=== PATIENT | female | born 1945 ===

== ENCOUNTER 2016-10-16 21:47 | Emergency (ER) | payer MEDICARE ==
--- NOTE | 2016-10-16 22:36 | ED CLINICAL REPORT ---
Clinical Report - Physicians/Mid Levels [facility] [address] [place] [address] 10/16/2016 21:53 Patient: JOCE RAYMUNDO Time Seen: 22:15. Arrived- By private vehicle. Historian- patient. HISTORY OF PRESENT ILLNESS Chief Complaint: DYSURIA. This started today and still present. It was gradual in onset and has been constant but is not gone now. Modifying factors- worsened by urination. Relieved by rest. No vaginal discharge, vaginal itching or genital lesions. She has had moderate burning pain with urination. It is described as "painful" and has occurred during urination. Similar symptoms previously: (a few times). ( trying OTC UTI pain medications). Recent medical care: Not recently seen/assessed. REVIEW OF SYSTEMS No fever, chills or skin rash. All systems otherwise negative, except as recorded above. PAST HISTORY See nurses notes. SOCIAL HISTORY Never smoker. No alcohol use or drug use. Is a local resident. ADDITIONAL NOTES The nursing notes have been reviewed. PHYSICAL EXAM Vital Signs: 10/16/2016 22:00 BP: 124/83. HR: 82. RR: 20. O2 saturation: 100%. Temp: 101.7 F. Pain level now: 4/10. Blood pressure normal. Oxygen saturation normal. Appearance: Alert. Oriented X3. No acute distress. HEENT: Normal external inspection. ENT: Pharynx normal. Neck: Neck supple. CVS: Heart sounds normal. Respiratory: No respiratory distress. Breath sounds normal. Chest nontender. Abdomen: Soft and nontender. Bowel sounds normal. No mass. Skin: Skin warm and dry. Normal skin color. No rash. Normal skin turgor. Extremities: Extremities nontender. No lower extremity edema. LABS, X-RAYS, AND EKG Laboratory Tests: UA-Culture if indicated: (JASSI: 10/16/2016 22:05) ( MsgRcvd 10/16/2016 22:37) Final results Test Result Flag Units (Reference) URINE COLOR ORANGE URINE APPEARANCE CLOUDY URINE GLUCOSE NEGATIVE (NEGATIVE) URINE BILIRUBIN NEGATIVE (NEGATIVE) URINE BILIRUBIN ICTOTEST NEGATIVE (NEGATIVE) URINE KETONE NEGATIVE (NEGATIVE) URINE SPECIFIC GRAVITY 1.015 (1.010-1.030) URINE PH 7.5 (5.0-8.0) URINE PROTEIN 3+ (NEGATIVE) URINE UROBILINOGEN 0.2 EU/dL (0.2-1.0) URINE NITRITE POSITIVE (NEGATIVE) URINE BLOOD 3+ (NEGATIVE) URINE LEUK ESTERASE NEGATIVE (NEGATIVE) URINE RBC 3-5 rbc/hpf (0-1) URINE WBC 25-50 wbc/hpf (0-1) URINE EPITHELIAL CELLS 5-10 EPI/hpf (0-5) URINE BACTERIA MODERATE (2+ TO 3+) (NONE SEEN) URINE COMMENT CULTURE INDICATED CLUE CELLS PRESENTURINE CULTURES ARE SET-UP BASED ON THE FOLLOWING CRITERIA:POSITIVE NITRITEPOSITIVE LEUKOCYTE ESTERASEGREATER THAN 10 WHITE BLOOD CELLSMODERATE (2+) OR GREATER BACTERIA . PROGRESS AND PROCEDURES Course of Care: The patient is a 71-year-old female with no pertinent past medical history presenting for evaluation of urinary tract infection Symptoms. Patient appears nontoxic and is no acute distress. Vital signs are unremarkable for elevation in body temperature. Patient is febrile. Patient does not have any other symptoms at this time except for generalized body aches. Patient will be evaluated with urinalysis. Patient likely with urinary tract infection. Patient reports having recent sinus infection that was treated with an antibiotic that she does not remember. Patient reported that the pole is pink in color. Patient states that she is on it for 7 Days. We will treat the patient with a different type of antibiotic at this time. workup shows patient to have a significant urinalysis or UTI. Patient's antibiotics given here in the emergency department. Prescription was provided. Patient instructed to follow-up with her primary care doctor for follow-up of her symptoms. Discussed with patient workup, diagnosis, home care, follow-up, and ret Prior to patient's departure in emergency department she was reevaluated and found to be gathering her belongings and in no acute distress. Repeat examination continues to be benign. Patient continues to be nontoxic. Do not feel patient needs to be admitted to the hospital require further emergency department workup/evaluation. Disposition: Discharged. Condition: good. CLINICAL IMPRESSION 10/16/2016 22:00 BP: 124/83. HR: 82. RR: 20. O2 saturation: 100%. Temp: 101.7 F. Pain level now: 4/10. Acute fever Blood pressure normal. Oxygen saturation normal. Acute urinary tract infection with cystitis and hematuria. INSTRUCTIONS Warnings: GENERAL WARNINGS: Return or contact your physician immediately if your condition worsens or changes unexpectedly, if not improving as expected, or if other problems arise. Specifically return if pain, vomiting, bleeding, breathing difficulty or fever not controlled by acetaminophen or ibuprofen. Your Current Medications: CONTINUE TAKING THE FOLLOWING MEDICATIONS: Albuterol Inhalation. ASA Oral : 81 mg q day. Flovent HFA Inhalation : 2 puffs 2x a day. Lisinopril Oral : 5 mg daily. Prednisone taper for sinus infection *. Vitamins/Minerals Oral. Prescription Medications: Macrobid 100 mg: take 1 capsule orally every 12 hours for 5 days. No refill. Substitution is permissible. (disp 10 caps) Follow-up: Return to the emergency department as needed. Follow up with your doctor in three days. Reason for referral: recheck today's concerns. Summary of care provided to patient via paper. Screening today revealed the patient's blood pressure to be in the normal range. The patient should follow up with a primary care provider for blood pressure management. Understanding of the discharge instructions verbalized by patient. (Electronically signed by Riaz Dupree Dr. 10/16/2016 23:26)
--- NOTE | 2016-10-16 22:36 | ED NURSING NOTES ---
Clinical Report - Nurses [facility] [place] [address] 10/16/2016 21:53 Patient: JOCE RAYMUNDO TRIAGE Triage time 22:00. Acuity: LEVEL 3. Chief Complaint: PAINFUL URINATION, URGENCY and FREQUENCY. Alert. No acute distress. --22:16 Meghan Plaza R.N. 22:00 10/16/16. BP: 124/83. HR: 82. RR: 20. O2 saturation: 100%. Temp: 101.7 F. Pain level now: 12/14. --22:16 Meghan Plaza R.N. Weight: 78.4 kg stated. Height/Length: 64 inches Per Patient. BMI: 29.7. --22:14 Meghan Plaza R.N. Medications Albuterol Inhalation. ASA Oral 81 mg q day. Flovent HFA Inhalation 2 puffs, 2x a day. Lisinopril Oral 5 mg, daily. Vitamins/Minerals Oral. --22:11 Meghan Plaza R.N. Prednisone taper for sinus infection . --22:12 Meghan Plaza R.N. Medication/allergy information source: the patient. --22:16 Meghan Plaza R.N. Allergies Zyrtec. --22:11 Meghan Plaza R.N. History Arrived by private vehicle. Historian: patient and family. Accompanied by family. The patient has had hematuria. She has had fever of 101.3 F orally with chills. No flank pain. Last oral intake by patient was today 6 hours ago. Treatment [employer]ING [employer]ING [employer]ICIAN: (otc azo). PAST MEDICAL HX: Immunizations: status is unknown. The patient has had a hysterectomy. SOCIAL HX: Light tobacco smoker (cigarette)- less than 1/2 a pack per day. Occasional alcohol use. No drug use. No infectious disease exposure. ABUSE ASSESSMENT: No report of abuse. FALL RISK ASSESSMENT: Fall risk assessment completed. No fall risk identified. NUTRITIONAL RISK ASSESSMENT: The nutritional risk assessment revealed no deficiencies. FUNCTIONAL ASSESSMENT: Functional assessment: no impairments noted. LEARNING NEEDS ASSESSMENT: The learning needs assessment revealed no barriers. SKIN INTEGRITY ASSESSMENT: Skin integrity risk assessment completed. No skin integrity risk identified. --22:16 Meghan Plaza R.N. PROBLEMS: Humerus Fracture. Bladder falling out. Arthritis. Asthma. Hypertension. --22:01 Meghan Plaza R.N. Sinusitis. 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 --22:14 Meghan Plaza R.N. ADDITIONAL SURGERIES: Bladder Suspension. Hysterectomy. Edenilson Fundoplasty. Tonsillectomy. --22:01 Meghan Plaza R.N. Interventions ID band on patient. To room. --22:16 Meghan Plaza R.N. PHYSICAL ASSESSMENT Ambulatory to room. Patient gowned. GENERAL / NEURO / PSYCH: Alert. Oriented X 4. Appears in pain and anxious. HEENT: Mucous membranes are pink. RESPIRATORY: Respirations not labored. CVS: Capillary refill less than 2 seconds. GI / : Abdomen nontender. SKIN: Skin is warm and dry. --22:16 Meghan Plaza R.N. NURSING PROGRESS NOTES Patient gowned. Head of bed elevated. Two patient identifiers checked. Call light placed in reach. Side rails up x 2. Bed placed in lowest position. Brakes of bed on. Patient ready for evaluation- chart flagged. --22:16 Meghan Plaza R.N. 22:19 10/16/16. Care transferred and report received (from DENISE Christianson). --22:19 Ana España R.N. 22:32 10/16/2016 Toradol (Ketorolac Tromethamine) IM 60 mg given. Given in the right gluteus kiley. Allergies verified and confirmed 5 rights. --22:32 Ana España R.N. 22:38 10/16/2016 Macrobid PO Capsules 100 mg given. Allergies verified and confirmed 5 rights. --22:38 Ana España R.N. DISPOSITION / DISCHARGE 22:56 10/16/16. Condition at departure: improved and stable. The goals identified in the patient's plan of care were met. No learning barriers present. Reviewed medication(s) side effects, precautions, dosing and course information. Prescription(s) given to the patient. Reviewed referral to a primary care physician for followup. Summary of care provided to patient via paper. The patient was discharged home and accompanied by family. She left the Emergency Department ambulatory and via private vehicle. Family member driving. --22:56 Ana España R.N. 22:56 10/16/16. BP: 126/86. HR: 88. RR: 18. O2 saturation: 99%. Temp: 100.8 F. Pain level now: 01/13. --22:56 Ana España R.N. <<STRICKEN ENTRY-- 22:56 10/16/16. Temp: 100.8 F. --22:56 Ana España R.N. --END STRIKE>> Change to Details. --22:56 Ana España R.N. 22:56 10/16/16. Departure time: 22:57 Oct 16 2016. --22:57 Ana España R.N. 22:56 10/16/16. BP: 126/86. HR: 88. RR: 18. O2 saturation: 99%. Temp: 100.8 F. Pain level now: 01/13. 22:00 10/16/16. BP: 124/83. HR: 82. RR: 20. O2 saturation: 100%. Temp: 101.7 F. Pain level now: 12/14. --22:57 Ana España R.N. Locked/Released at 10/16/2016 22:57 by Ana España R.N.
--- NOTE | 2016-10-16 22:37 | ED ORDER SUMMARY ---
..... Patient: JOCE RAYMUNDO OrderSheet [facility] VisitID: [id number] [address] [place] [address] 71y, F Registration Date/Time: 10/16/2016 ORDER SHEET Weight: 78.4 kg (stated) Allergies: Zyrtec GENERAL ORDERS: UA-Culture if indicated Urgent (22:03 10/16/2016 Prema Colin) (Ack 22:11 IJurca ER Tech1) (22:23 AMcQuoid ER Tech1) MEDICATION ORDERS: Toradol IM 60 mg (NOW) (22:25 10/16/2016 Prema Colin) (22:32 EIndclaudia R.N.) Macrobid PO 100 mg (NOW) (22:34 10/16/2016 Prema Colin) (22:38 EIndclaudia R.N.) IV FLUIDS: ORDER SHEET NOTES: [Electronically signed by Ana España R.N. (22:57 10/16/2016)] [Electronically signed by Riaz Dupree Dr. (23:26 10/16/2016)] [Electronically locked/signed by Ana España R.N. (22:57 10/16/2016)]
--- NOTE | 2016-10-16 22:37 | ED ORDER SUMMARY ---
..... Patient: JOCE RAYMUNDO OrderSheet [facility] VisitID: [id number] [address] [place] [address] 71y, F Registration Date/Time: 10/16/2016 ORDER SHEET Weight: 78.4 kg (stated) Allergies: Zyrtec GENERAL ORDERS: UA-Culture if indicated Urgent (22:03 10/16/2016 Prema Colin) (Ack 22:11 IJurca ER Tech1) (22:23 AMcQuoid ER Tech1) MEDICATION ORDERS: Toradol IM 60 mg (NOW) (22:25 10/16/2016 Prema Colin) (22:32 EIndclaudia R.N.) Macrobid PO 100 mg (NOW) (22:34 10/16/2016 Prema Colin) (22:38 EIndclaudia R.N.) IV FLUIDS: ORDER SHEET NOTES: [Electronically signed by Ana España R.N. (22:57 10/16/2016)] [Electronically signed by Riaz Dupree Dr. (23:26 10/16/2016)] [Electronically locked/signed by Aan España R.N. (22:57 10/16/2016)]
--- NOTE | 2016-10-16 23:27 | ED MAR SUMMARY ---
..... Medication Administration Record [facility] [address] [place] [address] Patient: JOCE RAYMUNDO Visit ID: [id number] 71y, F Weight: 78.4 kg Height/Length: 64 in BMI: 29.7 ALLERGIES: Zyrtec Given 22:32 10/16/2016 Ana España R.N. Medication Administered: TORADOL [IM] (KETOROLAC TROMETHAMINE), Dose: 60 mg IM. Medication Ordered: Toradol IM 60 mg (NOW). Given 22:38 10/16/2016 Ana España R.N. Medication Administered: MACROBID [PO], Dose: 100 mg Capsules PO. Medication Ordered: Macrobid PO 100 mg (NOW).
--- NOTE | 2016-10-16 23:27 | ED MED RECONCILIATION SUMMARY ---
Patient: JOCE RAYMUNDO Medication Reconciliation Report [facility] VisitID: [id number] [address] [place] [address] 71y, F Registration Date/Time: 10/16/2016 Weight: 78.4 kg Height/Length: 64 in. BMI: 29.7 ALLERGIES: Zyrtec The patient's Home Medications are listed below: CONTINUE TAKING THE FOLLOWING MEDICATIONS: Albuterol Inhalation ASA Oral 81 mg q day Flovent HFA Inhalation 2 puffs, 2x a day Lisinopril Oral 5 mg, daily Prednisone taper for sinus infection Vitamins/Minerals Oral The source(s) of the original Home Medication information: patient The following Medications were given to the patient in the Emergency Department: Toradol [IM] IM 60 mg, administered: 10/16/2016 10:32:00 PM Macrobid [PO] PO 100 mg, administered: 10/16/2016 10:38:00 PM The following Medications were prescribed to the patient: Macrobid 100 mg: take 1 capsule orally every 12 hours for 5 days. No refill. Substitution is permissible.(disp 10 caps) -- Riaz Dupree Dr.
--- NOTE | 2016-10-16 23:27 | ED DISCHARGE INSTRUCTIONS ---
Patient: JOCE RAYMUNDO General Instructions [facility] VisitID: [id number] [place] [address] 71y, F Registration Date/Time: 10/16/2016 10/16/2016 22:00 BP: 124/83. HR: 82. RR: 20. O2 saturation: 100%. Temp: 101.7 F. Pain level now: 10. Acute fever Blood pressure normal. Oxygen saturation normal. Acute urinary tract infection with cystitis and hematuria. INSTRUCTIONS Warnings: GENERAL WARNINGS: Return or contact your physician immediately if your condition worsens or changes unexpectedly, if not improving as expected, or if other problems arise. Specifically return if pain, vomiting, bleeding, breathing difficulty or fever not controlled by acetaminophen or ibuprofen. Your Current Medications: CONTINUE TAKING THE FOLLOWING MEDICATIONS: Albuterol Inhalation. ASA Oral : 81 mg q day. Flovent HFA Inhalation : 2 puffs 2x a day. Lisinopril Oral : 5 mg daily. Prednisone taper for sinus infection *. Vitamins/Minerals Oral. Prescription Medications: Macrobid 100 mg: take 1 capsule orally every 12 hours for 5 days. No refill. Substitution is permissible. (disp 10 caps) Follow-up: Return to the emergency department as needed. Follow up with your doctor in three days. Reason for referral: recheck today's concerns. Summary of care provided to patient via paper. Screening today revealed the patient's blood pressure to be in the normal range. The patient should follow up with a primary care provider for blood pressure management. Understanding of the discharge instructions verbalized by patient. ADDITIONAL INFORMATION Bladder Infection,Female (Adult) A bladder infection ("cystitis" or "UTI") usually causes a constant urge to urinate and a burning when passing urine. Urine may be cloudy, smelly or dark. There may be pain in the lower abdomen. A bladder infection occurs when bacteria from the vaginal area enter the bladder opening (urethra). This can occur from sexual intercourse, wearing tight clothing, dehydration and other factors. Home Care: Drink lots of fluids (at least 6-8 glasses a day, unless you must restrict fluids for other medical reasons). This will force the medicine into your urinary system and flush the bacteria out of your body. Avoid sexual intercourse until your symptoms are gone. Avoid caffeine, alcohol and spicy foods. These can irritate the bladder. A bladder infection is treated with antibiotics. You may also be given Pyridium (generic = phenazopyridine) to reduce the burning sensation. This medicine will cause your urine to become a bright orange color. The orange urine may stain clothing. You may wear a pad or panty-liner to protect clothing. Preventing Future Infections: Always wipe from front to back after a bowel movement. Keep the genital area clean and dry. Drink plenty of fluids each day to avoid dehydration. Both sexual partners should wash before intercourse. Urinate right after intercourse to flush out the bladder. Wear cotton underwear and cotton-lined panty hose; avoid tight-fitting pants. If you are on control pills and are having frequent bladder infections, discuss with your doctor. Follow Up: Return to this facility or see your doctor if ALL symptoms are not gone after three days of treatment. Get Prompt Medical Attention if any of the following occur: Fever of 100.4F (38C) or higher, or as directed by your healthcare provider No improvement by the third day of treatment Increasing back or abdominal pain Repeated vomiting; unable to keep medicine down Weakness, dizziness or fainting Vaginal discharge Pain, redness or swelling in the labia (outer vaginal area) Blood In The Urine Blood in the urine ("hematuria") has many possible causes. If it occurs after an injury (such as a car accident or fall), it is most often a sign of bruising to the kidney or bladder. Common medical causes of blood in the urine include urinary tract infection, kidney stone, inflammation, tumors, or certain other diseases of the kidney or bladder. Menstruation can cause blood to appear in the urine sample, although it is not coming from the urinary tract. If only a trace amount of blood is present, it will show up on the urine test, even though the urine may be yellow and not pink or red. This may occur with any of the above conditions, as well as heavy exercise or high fever. In this case, your doctor may want to repeat the urine test on another day. This will show if the blood is still present. If so, then other tests can be done to find out the cause. Home Care: If your urine does not appear bloody (pink, brown or red) then you do not need to restrict your activity in any way. If you can see blood in your urine, rest and avoid heavy exertion until your next exam. Do not use aspirin or anti-inflammatory medicine like ibuprofen (Motrin, Advil) or naproxen (Naprosyn, Aleve). These thin the blood and may increase bleeding. Follow Up with your doctor or as advised by our staff. If you were injured and had blood in your urine, you should have a repeat urine test in 1-2 days. Contact your doctor or return to this facility for this test. [NOTE: A radiologist will review any X-rays that were taken. We will notify you of any new findings that may affect your care.] Get Prompt Medical Attention if any of the following occur: Bright red blood or blood clots in the urine (if a new symptom) Weakness, dizziness or fainting New groin, abdominal or back pain Fever of 100.4F (38C) or higher, or as directed by your healthcare provider Repeated vomiting Bleeding from nose, gums or easy bruising Febrile Illness, Uncertain Cause (Adult) You have a fever, but the cause is not certain. A fever is a natural reaction of the body to an illness such as infections due to a virus or bacteria. In most cases, the temperature itself is not harmful. It actually helps the body fight infections. A fever does not need to be treated unless you feel very uncomfortable. Sometimes a fever can be an early sign of a more serious infection. Therefore, you should watch for the signs listed below. Home Care: If signs and symptoms are severe, rest at home for the first 2-3 days. When you resume activity, don't let yourself get too tired. Stay away from cigarette smoke (yours and other peoples). You may use acetaminophen (Tylenol) or ibuprofen (Motrin, Advil) to control fever or pain, unless another medicine was prescribed. NOTE: If you have chronic liver or kidney disease or ever had a stomach ulcer or GI bleeding, talk with your doctor before using these medicines. (Aspirin should never be used in anyone under 18 years of age who is ill with a fever. It may cause severe liver damage.) Your appetite may be poor, so a light diet is fine. Avoid dehydration by drinking 6-8 glasses of fluid per day (water, sport drinks such as Gatorade, sodas without caffeine, juices, tea, soup). Extra fluid will help loosen secretions in the nose and lungs. Ujfu-yyl-nwpstwr products will not shorten the duration of the illness but may be helpful for the following symptoms: cough (Robitussin DM); sore throat (Chloraseptic lozenges or spray); nasal and sinus congestion (Actifed or Sudafed). NOTE: Do not use decongestants if you have high blood pressure. Follow Up with your doctor or as advised if you do not start to improve over the next week. Get Prompt Medical Attention if any of the following occur: Cough with lots of colored sputum (mucus) or blood in your sputum Chest pain, shortness of breath, wheezing or difficulty breathing Severe headache, face, neck, throat or ear pain Feeling drowsy or confused Abdominal pain, repeated vomiting or diarrhea Joint pain or a new rash Burning when urinating Fever of 100.4F (38C) oral or higher, not better with fever medication Feeling weak or dizzy Convulsion Nitrofurantoin, Nitrofurantoin, Macrocrystalline Oral capsule What is this medicine? NITROFURANTOIN (gustavo NESS toyn) is an antibiotic. It is used to treat urinary tract infections. How should I use this medicine? Take this medicine by mouth with a glass of water. Follow the directions on the prescription label. Take this medicine with food or milk. Take your doses at regular intervals. Do not take your medicine more often than directed. Do not stop taking except on your doctor's advice. Talk to your marketing forecaster regarding the use of this medicine in children. While this drug may be prescribed for selected conditions, precautions do apply. What side effects may I notice from receiving this medicine? Side effects that you should report to your doctor or health care transition coordinator as soon as possible: allergic reactions like skin rash or hives, swelling of the face, lips, or tongue chest pain cough difficulty breathing dizziness, drowsiness fever or infection joint aches or pains pale or blue-tinted skin redness, blistering, peeling or loosening of the skin, including inside the mouth tingling, burning, pain, or numbness in hands or feet unusual bleeding or bruising unusually weak or tired yellowing of eyes or skin Side effects that usually do not require medical attention (report to your doctor or health care transition coordinator if they continue or are bothersome): dark urine diarrhea headache loss of appetite nausea or vomiting temporary hair loss What may interact with this medicine? antacids containing magnesium trisilicate probenecid quinolone antibiotics like ciprofloxacin, lomefloxacin, norfloxacin and ofloxacin sulfinpyrazone What if I miss a dose? If you miss a dose, take it as soon as you can. If it is almost time for your next dose, take only that dose. Do not take double or extra doses. Where should I keep my medicine? Keep out of the reach of children. Store at room temperature between 15 and 30 degrees C (59 and 86 degrees F). Protect from light. Throw away any unused medicine after the expiration date. What should I tell my health care provider before I take this medicine? They need to know if you have any of these conditions: anemia diabetes whyybmd-3-lackhyrul dehydrogenase deficiency kidney disease liver disease lung disease other chronic illness an unusual or allergic reaction to nitrofurantoin, other antibiotics, other medicines, foods, dyes or preservatives or trying to get breast-feeding What should I watch for while using this medicine? Tell your doctor or health care transition coordinator if your symptoms do not improve or if you get new symptoms. Drink several glasses of water a day. If you are taking this medicine for a long time, visit your doctor for regular checks on your progress. If you are diabetic, you may get a false positive result for sugar in your urine with certain brands of urine tests. Check with your doctor. You have been given the following additional information: Bladder Infection, Female (Adult) Hematuria Febrile Illness, Uncertain Cause (Adult) Nitrofurantoin, Nitrofurantoin, Macrocrystalline Oral capsule (Electronically signed by Riaz Dupree Dr. 10/16/2016 23:26)
--- NOTE | 2016-10-16 23:27 | ED MED RECONCILIATION SUMMARY ---
Patient: JOCE RAYMUNDO Medication Reconciliation Report [facility] VisitID: [id number] [address] [place] [address] 71y, F Registration Date/Time: 10/16/2016 Weight: 78.4 kg Height/Length: 64 in. BMI: 29.7 ALLERGIES: Zyrtec The patient's Home Medications are listed below: CONTINUE TAKING THE FOLLOWING MEDICATIONS: Albuterol Inhalation ASA Oral 81 mg q day Flovent HFA Inhalation 2 puffs, 2x a day Lisinopril Oral 5 mg, daily Prednisone taper for sinus infection Vitamins/Minerals Oral The source(s) of the original Home Medication information: patient The following Medications were given to the patient in the Emergency Department: Toradol [IM] IM 60 mg, administered: 10/16/2016 10:32:00 PM Macrobid [PO] PO 100 mg, administered: 10/16/2016 10:38:00 PM The following Medications were prescribed to the patient: Macrobid 100 mg: take 1 capsule orally every 12 hours for 5 days. No refill. Substitution is permissible.(disp 10 caps) -- Riaz Dupree Dr.
--- NOTE | 2016-10-16 23:27 | ED MAR SUMMARY ---
..... Medication Administration Record [facility] [address] [place] [address] Patient: JOCE RAYMUNDO Visit ID: [id number] 71y, F Weight: 78.4 kg Height/Length: 64 in BMI: 29.7 ALLERGIES: Zyrtec Given 22:32 10/16/2016 Ana España R.N. Medication Administered: TORADOL [IM] (KETOROLAC TROMETHAMINE), Dose: 60 mg IM. Medication Ordered: Toradol IM 60 mg (NOW). Given 22:38 10/16/2016 Ana España R.N. Medication Administered: MACROBID [PO], Dose: 100 mg Capsules PO. Medication Ordered: Macrobid PO 100 mg (NOW).
== END 2016-10-16 22:55 | disposition home or self-care (01) ==
LOC: ED SRH 21:47
DX: N39.0 Urinary tract infection, site not specified (principal); N30.90 Cystitis, unspecified without hematuria; R31.9 Hematuria, unspecified; F17.210 Nicotine dependence, cigarettes, uncomplicated; I10 Essential (primary) hypertension; Z79.899 Other long term (current) drug therapy
CPT/HCPCS: 90004; 90148; 90469

== ENCOUNTER 2016-11-03 11:32 | Emergency (ER) | payer MEDICARE ==
--- NOTE | 2016-11-03 12:50 | DIAGNOSTIC IMAGING REPORT ---
PROCEDURE: XR CHEST 1 VIEW INDICATION: SHORTNESS OF BREATH TECHNIQUE: Portable AP view 12:20. COMPARISON: None. FINDINGS: Lungs are clear. Heart and mediastinum are normal. Thorax is normal. IMPRESSION: 1. Negative chest.
--- NOTE | 2016-11-03 14:28 | ED NURSING NOTES ---
Clinical Report - Nurses [place] [address] [place] [address] 11/03/2016 11:33 Patient: JOCE RAYMUNDO TRIAGE Triage time 11:43 Nov 03 2016. Acuity: LEVEL 3. Chief Complaint: SHORTNESS OF BREATH, DIFFICULTY BREATHING, "ASTHMA ATTACK" and WHEEZING. Alert. No acute distress. --11:52 Kateryna Franklin R.N. 11:43 11/03/16. BP: 94/56. HR: 113. RR: 27 (labored). O2 saturation: 100%. Temp: 98.4 F. --11:52 Kateryna Franklin R.N. Weight: 74.8 kg stated. Height/Length: 63 inches Per Patient. BMI: 29.2. --11:53 Kateryna Franklin R.N. Medications Aspirin Oral (Tablet Chewable 81 mg) 1 tablet, daily. --14:19 Kateryna Franklin R.N. Atelvia 35mg , weekly. --14:20 Kateryna Franklin R.N. Atorvastatin Calcium Oral (Tablet 20 mg) 1 tablet, daily. --14:21 Kateryna Franklin R.N. Vitamin D3 Oral (Tablet 1000 unit) 2 tablets, daily. --14:23 Kateryna Franklin R.N. Lisinopril Oral (Tablet 20 mg) 1 tablet, daily. --14:23 Kateryna Frankiln R.N. Omeprazole Oral (Capsule Delayed Release 40 mg) 1 capsule, every other day. --14:23 Kateryna Franklin R.N. Potassium Chloride Oral 20 meq, daily. --14:24 Kateryna Franklin R.N. Ranitidine HCl Oral (Tablet 150 mg) 1 tablet, 2x a day. --14:25 Kateryna Franklin R.N. Calcitrate Oral (Tablet 315-250 mg-unit) 1 tablet, three times a day. --14:26 Kateryna Franklin R.N. The following entry was struck by Kateryna Franklin R.N., 14:20 (11/03/16) Reason - other(pts daughter brought in list of medications.). <<STRICKEN ENTRY-- Unable to Obtain. --11:45 Kateryna Franklin R.N. --END STRIKE>>. Allergies Zyrtec. --11:44 Kateryna Franklin R.N. History Arrived by private vehicle. Historian: patient. Accompanied by family. This is a recurrent problem and onset was gradual. Worsened while participating in light activity. Symptoms still present (2 days ago). She has had fever, a cough and wheezing. SOCIAL HX: Current every day heavy tobacco smoker (cigarette)- less than 1 pack per day. Regular alcohol use; consumes four liquor. Last drink was 3 days ago. No drug use. No infectious disease exposure. FALL RISK ASSESSMENT: Fall risk assessment completed. No fall risk identified. NUTRITIONAL RISK ASSESSMENT: The nutritional risk assessment revealed no deficiencies. FUNCTIONAL ASSESSMENT: Functional assessment: no impairments noted. LEARNING NEEDS ASSESSMENT: The learning needs assessment revealed no barriers. SKIN INTEGRITY ASSESSMENT: Skin integrity risk assessment completed. No skin integrity risk identified. --11:52 Kateryna Franklin R.N. PROBLEMS: Kidney cyst. Fever. UTI - Urinary Tract Infection. Sinusitis. 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 Humerus Fracture. Bladder falling out. Arthritis. Asthma. Hypertension. --11:46 Kateryna Franklin R.N. ADDITIONAL SURGERIES: Bladder Suspension. Edenilson Fundoplasty. Tonsillectomy. --11:46 Kateryna Franklin R.N. Interventions ID and allergy band on patient. To room. --11:52 Kateryna Franklin R.N. PHYSICAL ASSESSMENT Ambulatory to room. GENERAL / NEURO / PSYCH: Alert. Oriented X 4. Appears in no acute distress. RESPIRATORY: Mild respiratory distress. The patient can speak in full sentences. Cough. Wheezing present. CVS: Capillary refill is greater than 2 seconds. GI / : Abdomen soft and nontender. EXTREMITIES: No lower extremity edema. SKIN: Skin is warm and dry. --11:53 Kateryna Franklin R.N. NURSING PROGRESS NOTES fisher dip net, pulse oximeter and NIBP monitor placed on patient; director cardiac- Lead II; monitor alarms on. Patient gowned. Head of bed elevated. Two patient identifiers checked. Call light placed in reach. Side rails up x 1. Bed placed in lowest position. Brakes of bed on. --11:54 Kateryna Franklin R.N. 12:00 11/03/2016 Site #1 started via IV in the right antecubital space with an 20g angiocath; one attempt. Blood drawn: rainbow set. Labeled in the presence of the patient and held. Saline lock flushed with 10 mL saline. --12:20 Kateryna Franklin R.N. 12:26 11/03/2016 Duoneb (Ipratropium-Albuterol) Neb TX 1 unit dose given. Given by the respiratory therapist. --12:26 Magdy Romero Patient ID band checked for patient name and birthdate: patient confirmed. Instructions provided to collect clean catch urine and patient verbalized understanding. Clean catch urine collected with return of yellow-colored clear urine; sample sent to lab for urinalysis. Specimen labeled in the presence of the patient. --12:53 Kateryna Franklin R.N. 13:24 11/03/16. BP: 115/54. HR: 61. RR: 20. O2 saturation: 95%. --13:31 Kateryna Franklin R.N. 14:19 11/03/2016 Levaquin (Levofloxacin) PO Tablets 500 mg given. Allergies verified and confirmed 5 rights. --14:19 Kateryna Franklin R.N. 14:19 11/03/2016 Prednisone PO Tablets 40 mg given. Allergies verified and confirmed 5 rights. --14:19 Kateryna Franklin R.N. 14:50 11/03/2016 Site #1 removed upon discharge. Catheter intact. Bandaid applied. --20:52 Meghan Plaza R.N. DISPOSITION / DISCHARGE 14:48 11/03/16. BP: 122/67. HR: 111. O2 saturation: 96%. --14:48 Kateryna Franklin R.N. Condition at departure: improved. No learning barriers present. Discharge instructions provided and reviewed with the patient. Reviewed medication(s) side effects, precautions, dosing and course information. Prescription(s) given to the patient. Patient verbalized understanding. Written instructions provided in Citizen [place]. The patient was discharged home and accompanied by family. She left the Emergency Department ambulatory and via private vehicle. Family member driving. Medication list reviewed and validated. --20:54 Meghan Plaza R.N. Departure time: 1450. --20:54 Meghan Plaza R.N. Locked/Released at 11/03/2016 20:54 by Meghan Plaza R.N.
--- NOTE | 2016-11-03 14:28 | ED ORDER SUMMARY ---
..... Patient: JOCE RAYMUNDO OrderSheet [facility] VisitID: [id number] [place] [address] 71y, F Registration Date/Time: 11/03/2016 ORDER SHEET Weight: 74.8 kg (stated) Allergies: Zyrtec GENERAL ORDERS: Chest 1V Urgent (12:13 11/03/2016 Argentina Colin) (Ack 12:14 RAMYAoerner) (12:23 KHoerner) CBC w Diff Urgent (12:13 11/03/2016 Argentina Colin) (Ack 12:14 Marcusner) (12:20 KKnebel R.N.) CMP Urgent (12:13 11/03/2016 Argentina Colin) (Ack 12:14 RAMYAoerner) (12:20 KKnebel R.N.) UA-Culture if indicated Urgent (12:13 11/03/2016 Argentina Colin) (Ack 12:14 Marcusner) (12:52 KKnebel R.N.) MEDICATION ORDERS: DuoNeb Neb Tx 1 unit dose (NOW) (12:13 11/03/2016 Argentina Colin) (Ack 12:15 Ayan) (12:26 Phililp) Levaquin PO 500 mg (NOW) (14:07 11/03/2016 Argentina Colin) (14:19 KKnebel R.N.) Prednisone PO 40 mg (NOW) (14:08 11/03/2016 Argentina Colin) (14:19 MINOnebel R.N.) IV FLUIDS: IV Saline Lock (12:11/03/2016 Argentina Colin) (12:36 KKnebel R.N.) ORDER SHEET NOTES: [Electronically signed by Meghan Plaza R.N. (20:54 11/03/2016)] [Electronically signed by Moises Garcia Dr. (22:31 11/03/2016)] [Electronically locked/signed by Meghan Plaza R.N. (20:54 11/03/2016)]
--- NOTE | 2016-11-03 14:28 | ED CLINICAL REPORT ---
Clinical Report - Physicians/Mid Levels [facility] [address] [place] [address] 11/03/2016 11:33 Patient: JOCE RAYMUNDO Time Seen: 11:50; initial patient contact. Arrived- By private vehicle. Historian- patient. HISTORY OF PRESENT ILLNESS Chief Complaint: COUGH and MUSCLE ACHES. This started about 2 days ago and is still present and worsening. It was gradual in onset. The patient has had a cough, difficulty breathing, nasal congestion, fever and chills. She has had muscle aches. The patient has had contact with a sick individual. Similar symptoms previously: None. Recent medical care: Not recently seen/assessed. REVIEW OF SYSTEMS The patient has had fatigue. No sinus pain, palpitations or calf pain. All systems otherwise negative, except as recorded above. PAST HISTORY Kidney cyst. Fever. UTI - Urinary Tract Infection. Sinusitis. 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 Humerus Fracture. Bladder falling out. Arthritis. Asthma. Hypertension. ADDITIONAL SURGERIES: Bladder Suspension. Edenilson Fundoplasty. Tonsillectomy. Medications: Calcitrate Oral (Tablet 315-250 mg-unit) 1 tablet, three times a day. Ranitidine HCl Oral (Tablet 150 mg) 1 tablet, 2x a day. Potassium Chloride Oral 20 meq, daily. Omeprazole Oral (Capsule Delayed Release 40 mg) 1 capsule, every other day. Lisinopril Oral (Tablet 20 mg) 1 tablet, daily. Vitamin D3 Oral (Tablet 1000 unit) 2 tablets, daily. Atorvastatin Calcium Oral (Tablet 20 mg) 1 tablet, daily. Atelvia 35mg , weekly. Aspirin Oral (Tablet Chewable 81 mg) 1 tablet, daily. Allergies: Zyrtec. SOCIAL HISTORY Current every day smoker. Occasional alcohol use. No drug use. ADDITIONAL NOTES The nursing notes have been reviewed with agreement regarding the chief complaint, PMH and patient medications and allergies. PHYSICAL EXAM Vital Signs: 11/03/2016 11:43 BP: 94/56. HR: 113. RR: 27. O2 saturation: 100%. Temp: 98.4 F. Have been reviewed. Hypotensive. Tachycardic. Tachypneic. Temperature normal. Oxygen saturation normal. Appearance: Alert. No acute distress. Eyes: Eyes normal inspection. ENT: Pharynx normal. Neck: Normal inspection. No lymphadenopathy. CVS: Tachycardia. Heart sounds normal. Normal rhythm. Respiratory: Mild respiratory distress with accessory muscle use and retractions. Moderately prolonged expirations. Expiratory moderate bilateral wheezes diffusely. Skin: Normal skin color. No rash. Extremities: No calf tenderness. No lower extremity edema. Neuro: Oriented X 3. LABS, X-RAYS, AND EKG Chest X-ray: Moderate hyperinflation present on the right and left with flattening of the diaphragm. Consistent with COPD. Normal lung markings present. No infiltrate. Views: AP. Technique: good. The X-rays were independently viewed by me and interpreted contemporaneously by me. Prior films were not available for comparison. Laboratory Tests: UA-Culture if indicated: (JASSI: 11/03/2016 12:50) ( [facility] 11/03/2016 13:14) Final results Test Result Flag Units (Reference) URINE COLOR YELLOW URINE APPEARANCE SL CLOUDY URINE GLUCOSE NEGATIVE (NEGATIVE) URINE BILIRUBIN NEGATIVE (NEGATIVE) URINE KETONE NEGATIVE (NEGATIVE) URINE SPECIFIC GRAVITY 1.020 (1.010-1.030) URINE PH 6.0 (5.0-8.0) URINE PROTEIN 1+ (NEGATIVE) URINE UROBILINOGEN 0.2 EU/dL (0.2-1.0) URINE NITRITE NEGATIVE (NEGATIVE) URINE BLOOD TRACE-INTACT (NEGATIVE) URINE LEUK ESTERASE TRACE (NEGATIVE) URINE RBC 0-1 rbc/hpf (0-1) URINE WBC 1-3 wbc/hpf (0-1) URINE EPITHELIAL CELLS 5-10 EPI/hpf (0-5) URINE BACTERIA TRACE (<1+) (NONE SEEN) URINE COMMENT CULTURE INDICATED 1-3 HYALINE CASTURINE CULTURES ARE SET-UP BASED ON THE FOLLOWING CRITERIA:POSITIVE NITRITEPOSITIVE LEUKOCYTE ESTERASEGREATER THAN 10 WHITE BLOOD CELLSMODERATE (2+) OR GREATER BACTERIA CBC w Diff: (JASSI: 11/03/2016 12:00) ( [facility] 11/03/2016 12:31) Final results Test Result Flag Units (Reference) WHITE BLOOD COUNT 5.7 K/uL (4.5-11.5) RED BLOOD COUNT 4.71 M/uL (4.00-5.20) HEMOGLOBIN 12.8 gm/dL (12.0-16.0) HEMATOCRIT 39.9 % (36.0-46.0) MEAN CELL VOLUME 85 fL (80-100) MEAN CORPUSCULAR HGB 27 pg (26-34) MEAN CORPUSCULAR HGB CONC 32 g/dL (31-37) RED CELL DISTRIBUTION WIDTH 17.4 H % (11.6-14.8) PLATELET COUNT 219 K/uL (150-400) NEUTROPHIL % 77.4 H % (50-75) LYMPH % 9.0 L % (25-40) MONO % 9.1 % (3-14) EOSINOPHIL % 4.2 H % (0-4) BASOPHIL % 0.3 % (0-2) CMP: (JASSI: 11/03/2016 12:00) ( [facility] 11/03/2016 12:59) Final results Test Result Flag Units (Reference) GLUCOSE 131 H mg/dL (70-110) BUN 13 mg/dL (7-18) CREATININE 0.9 mg/dL (0.6-1.3) Estimated GFR >60 mL/min Estimated GFR- >60 mL/min Note: Persistent reduction over 3 months in eGFR<60 mL/min/1.73 m2 defines CKD. Patients with eGFR values>=60 mL/min/1.73 m2 may also have CKD if evidence ofpersistent proteinuria. Additional information may be foundat www.kidney.org. SODIUM 140 mmol/L (136-145) POTASSIUM 4.1 mmol/L (3.5-5.1) CHLORIDE 103 mmol/L (98-107) CARBON DIOXIDE 28 mmol/L (21-32) CALCIUM 10.8 H mg/dL (8.5-10.1) TOTAL PROTEIN 7.3 g/dL (6.4-8.2) ALBUMIN 3.4 g/dL (3.3-5.0) BILIRUBIN, TOTAL 0.4 mg/dL (0.0-1.0) ALKALINE PHOSPHATASE 89 U/L (46-116) AST (SGOT) 17 U/L (15-37) ALT (SGPT) 19 U/L (12-78) . PROGRESS AND PROCEDURES Course of Care: DuoNeb nebulizer treatment (1 unit dose) given. The patient's symptoms are now gone. Physical exam findings are improved. Disposition: Discharged home in good and improved condition. Condition: good. CLINICAL IMPRESSION Acute exacerbation of COPD. Acute urinary tract infection with cystitis. INSTRUCTIONS Do not smoke. Seek medical help to quit smoking. Your Current Medications: CONTINUE TAKING THE FOLLOWING MEDICATIONS: Aspirin Oral : Tablet Chewable 81 mg, 1 tablet daily. Atelvia* : 35mg weekly. Atorvastatin Calcium Oral : Tablet 20 mg, 1 tablet daily. Calcitrate Oral : Tablet 315-250 mg-unit, 1 tablet three times a day. Lisinopril Oral : Tablet 20 mg, 1 tablet daily. Omeprazole Oral : Capsule Delayed Release 40 mg, 1 capsule every other day. Potassium Chloride Oral : 20 meq daily. Ranitidine HCl Oral : Tablet 150 mg, 1 tablet 2x a day. Vitamin D3 Oral : Tablet 1000 unit, 2 tablets daily. Prescription Medications: Levaquin 500 mg: take 1 tab orally every day for 4 days. No refills. Substitution is permissible. (Start on 11/04/16) Albuterol 0.083% Inhalation Solution: inhale 1 unit dose (3 mL) via nebulizer every 4 hours as needed for wheezing, difficulty breathing or shortness of breath. Dispense twenty-five (25) units. No refill. Prednisone 20 mg: take 2 orally every day for 4 days. Dispense sufficient quantity. No refills. (Start on 11/04/16) Follow-up: Follow up with your doctor in two days. Call for an appointment. Blood pressure screening was not performed during this visit because the patient has an active diagnosis of hypertension. (Electronically signed by Moises Garcia Dr. 11/03/2016 22:31)
--- NOTE | 2016-11-03 14:28 | ED ORDER SUMMARY ---
..... Patient: JOCE RAYMUNDO OrderSheet [facility] VisitID: [id number] [place] [address] 71y, F Registration Date/Time: 11/03/2016 ORDER SHEET Weight: 74.8 kg (stated) Allergies: Zyrtec GENERAL ORDERS: Chest 1V Urgent (12:13 11/03/2016 Argentina Colin) (Ack 12:14 RAMYAoerner) (12:23 KHoerner) CBC w Diff Urgent (12:13 11/03/2016 Argentina Colin) (Ack 12:14 Marcusner) (12:20 KKnebel R.N.) CMP Urgent (12:13 11/03/2016 Argentina Colin) (Ack 12:14 RAMYAoerner) (12:20 KKnebel R.N.) UA-Culture if indicated Urgent (12:13 11/03/2016 Argentina Colin) (Ack 12:14 Marcusner) (12:52 KKnebel R.N.) MEDICATION ORDERS: DuoNeb Neb Tx 1 unit dose (NOW) (12:13 11/03/2016 Argentina Colin) (Ack 12:15 Ayan) (12:26 Phillip) Levaquin PO 500 mg (NOW) (14:07 11/03/2016 Argentina Colin) (14:19 KKnebel R.N.) Prednisone PO 40 mg (NOW) (14:08 11/03/2016 Argentina Colin) (14:19 MINOnebel R.N.) IV FLUIDS: IV Saline Lock (12:11/03/2016 Argentina Colin) (12:36 KKnebel R.N.) ORDER SHEET NOTES: [Electronically signed by Meghan Plaza R.N. (20:54 11/03/2016)] [Electronically signed by Moises Garcia Dr. (22:31 11/03/2016)] [Electronically locked/signed by Meghan Plaza R.N. (20:54 11/03/2016)]
--- NOTE | 2016-11-03 14:28 | ED NURSING NOTES ---
Clinical Report - Nurses [facility] [place] [address] [place] [address] 11/03/2016 11:33 Patient: JOCE RAYMUNDO TRIAGE Triage time 11:43 Nov 03 2016. Acuity: LEVEL 3. Chief Complaint: SHORTNESS OF BREATH, DIFFICULTY BREATHING, "ASTHMA ATTACK" and WHEEZING. Alert. No acute distress. --11:52 Kateryna Franklin R.N. 11:43 11/03/16. BP: 94/56. HR: 113. RR: 27 (labored). O2 saturation: 100%. Temp: 98.4 F. --11:52 Kateryna Franklin R.N. Weight: 74.8 kg stated. Height/Length: 63 inches Per Patient. BMI: 29.2. --11:53 Kateryna Franklin R.N. Medications Aspirin Oral (Tablet Chewable 81 mg) 1 tablet, daily. --14:19 Kateryna Franklin R.N. Atelvia 35mg , weekly. --14:20 Kateryna Franklin R.N. Atorvastatin Calcium Oral (Tablet 20 mg) 1 tablet, daily. --14:21 Kateryna Franklin R.N. Vitamin D3 Oral (Tablet 1000 unit) 2 tablets, daily. --14:23 Kateryna Franklin R.N. Lisinopril Oral (Tablet 20 mg) 1 tablet, daily. --14:23 Kateryna Franklin R.N. Omeprazole Oral (Capsule Delayed Release 40 mg) 1 capsule, every other day. --14:23 Kateryna Franklin R.N. Potassium Chloride Oral 20 meq, daily. --14:24 Kateryna Franklin R.N. Ranitidine HCl Oral (Tablet 150 mg) 1 tablet, 2x a day. --14:25 Kateryna Franklin R.N. Calcitrate Oral (Tablet 315-250 mg-unit) 1 tablet, three times a day. --14:26 Kateryna Franklin R.N. The following entry was struck by Kateryna Franklin R.N., 14:20 (11/03/16) Reason - other(pts daughter brought in list of medications.). <<STRICKEN ENTRY-- Unable to Obtain. --11:45 Kateryna Franklin R.N. --END STRIKE>>. Allergies Zyrtec. --11:44 Kateryna Franklin R.N. History Arrived by private vehicle. Historian: patient. Accompanied by family. This is a recurrent problem and onset was gradual. Worsened while participating in light activity. Symptoms still present (2 days ago). She has had fever, a cough and wheezing. SOCIAL HX: Current every day heavy tobacco smoker (cigarette)- less than 1 pack per day. Regular alcohol use; consumes four liquor. Last drink was 3 days ago. No drug use. No infectious disease exposure. FALL RISK ASSESSMENT: Fall risk assessment completed. No fall risk identified. NUTRITIONAL RISK ASSESSMENT: The nutritional risk assessment revealed no deficiencies. FUNCTIONAL ASSESSMENT: Functional assessment: no impairments noted. LEARNING NEEDS ASSESSMENT: The learning needs assessment revealed no barriers. SKIN INTEGRITY ASSESSMENT: Skin integrity risk assessment completed. No skin integrity risk identified. --11:52 Kateryna Franklin R.N. PROBLEMS: Kidney cyst. Fever. UTI - Urinary Tract Infection. Sinusitis. 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 Humerus Fracture. Bladder falling out. Arthritis. Asthma. Hypertension. --11:46 Kateryna Franklin R.N. ADDITIONAL SURGERIES: Bladder Suspension. Edenilson Fundoplasty. Tonsillectomy. --11:46 Kateryna Franklin R.N. Interventions ID and allergy band on patient. To room. --11:52 Kateryna Franklin R.N. PHYSICAL ASSESSMENT Ambulatory to room. GENERAL / NEURO / PSYCH: Alert. Oriented X 4. Appears in no acute distress. RESPIRATORY: Mild respiratory distress. The patient can speak in full sentences. Cough. Wheezing present. CVS: Capillary refill is greater than 2 seconds. GI / : Abdomen soft and nontender. EXTREMITIES: No lower extremity edema. SKIN: Skin is warm and dry. --11:53 Kateryna Franklin R.N. NURSING PROGRESS NOTES telemetry monitor, pulse oximeter and NIBP monitor placed on patient; manager cardiac- Lead II; monitor alarms on. Patient gowned. Head of bed elevated. Two patient identifiers checked. Call light placed in reach. Side rails up x 1. Bed placed in lowest position. Brakes of bed on. --11:54 Kateryna Franklin R.N. 12:00 11/03/2016 Site #1 started via IV in the right antecubital space with an 20g angiocath; one attempt. Blood drawn: rainbow set. Labeled in the presence of the patient and held. Saline lock flushed with 10 mL saline. --12:20 Kateryna Franklin R.N. 12:26 11/03/2016 Duoneb (Ipratropium-Albuterol) Neb TX 1 unit dose given. Given by the respiratory therapist. --12:26 Magdy Romero Patient ID band checked for patient name and birthdate: patient confirmed. Instructions provided to collect clean catch urine and patient verbalized understanding. Clean catch urine collected with return of yellow-colored clear urine; sample sent to lab for urinalysis. Specimen labeled in the presence of the patient. --12:53 Kateryna Franklin R.N. 13:24 11/03/16. BP: 115/54. HR: 61. RR: 20. O2 saturation: 95%. --13:31 Kateryna Franklin R.N. 14:19 11/03/2016 Levaquin (Levofloxacin) PO Tablets 500 mg given. Allergies verified and confirmed 5 rights. --14:19 Kateryna Franklin R.N. 14:19 11/03/2016 Prednisone PO Tablets 40 mg given. Allergies verified and confirmed 5 rights. --14:19 Kateryna Franklin R.N. 14:50 11/03/2016 Site #1 removed upon discharge. Catheter intact. Bandaid applied. --20:52 Meghan Plaza R.N. DISPOSITION / DISCHARGE 14:48 11/03/16. BP: 122/67. HR: 111. O2 saturation: 96%. --14:48 Kateryna Franklin R.N. Condition at departure: improved. No learning barriers present. Discharge instructions provided and reviewed with the patient. Reviewed medication(s) side effects, precautions, dosing and course information. Prescription(s) given to the patient. Patient verbalized understanding. Written instructions provided in [place]. The patient was discharged home and accompanied by family. She left the Emergency Department ambulatory and via private vehicle. Family member driving. Medication list reviewed and validated. --20:54 Meghan Plaza R.N. Departure time: 1450. --20:54 Meghan Plaza R.N. Locked/Released at 11/03/2016 20:54 by Meghan Plaza R.N.
--- NOTE | 2016-11-03 22:31 | ED MAR SUMMARY ---
..... Medication Administration Record [facility] [address] [place] [address] Patient: JOCE RAYMUNDO Visit ID: [id number] 71y, F Weight: 74.8 kg Height/Length: 63 in BMI: 29.2 ALLERGIES: Zyrtec Given 12:26 11/03/2016 Magdy Romero, Medication Administered: DUONEB [NEB TX] (IPRATROPIUM-ALBUTEROL), Dose: 1 unit dose Neb TX. Medication Ordered: DuoNeb Neb Tx 1 unit dose (NOW). Given 14:11/03/2016 Kateryna Franklin RLingNLing Medication Administered: LEVAQUIN [PO] (LEVOFLOXACIN), Dose: 500 mg Tablets PO. Medication Ordered: Levaquin PO 500 mg (NOW). Given 14:11/03/2016 Kateryna Franklin RLingNLing Medication Administered: PREDNISONE [PO], Dose: 40 mg Tablets PO. Medication Ordered: Prednisone PO 40 mg (NOW).
--- NOTE | 2016-11-03 22:31 | ED MED RECONCILIATION SUMMARY ---
Patient: JOCE RAYMUNDO Medication Reconciliation Report [facility] VisitID: [id number] [place] [address] 71y, F Registration Date/Time: 11/03/2016 Weight: 74.8 kg Height/Length: 63 in. BMI: 29.2 ALLERGIES: Zyrtec The patient's Home Medications are listed below: CONTINUE TAKING THE FOLLOWING MEDICATIONS: Aspirin Oral (81 mg) 1 tablet, daily Atelvia 35mg , weekly Atorvastatin Calcium Oral (20 mg) 1 tablet, daily Calcitrate Oral (315-250 mg-unit) 1 tablet, three times a day Lisinopril Oral (20 mg) 1 tablet, daily Omeprazole Oral (40 mg) 1 capsule, every other day Potassium Chloride Oral 20 meq, daily Ranitidine HCl Oral (150 mg) 1 tablet, 2x a day Vitamin D3 Oral (1000 unit) 2 tablets, daily The source(s) of the original Home Medication information: Not obtained. The following Medications were given to the patient in the Emergency Department: Duoneb [Neb Tx] Neb TX 1 unit dose, administered: 11/03/2016 12:26:00 PM Levaquin [PO] PO 500 mg, administered: 11/03/2016 2:19:00 PM Prednisone [PO] PO 40 mg, administered: 11/03/2016 2:19:00 PM The following Medications were prescribed to the patient: Levaquin 500 mg: take 1 tab orally every day for 4 days. No refills. Substitution is permissible.(Start on 11/04/16) -- Moises Garcia Dr. Albuterol 0.083% Inhalation Solution: inhale 1 unit dose (3 mL) via nebulizer every 4 hours as needed for wheezing, difficulty breathing or shortness of breath. Dispense twenty-five (25) units. No refill. -- Moises Garcia Dr. Prednisone 20 mg: take 2 orally every day for 4 days. Dispense sufficient quantity. No refills.(Start on 11/04/16) -- Moises Garcia Dr.
--- NOTE | 2016-11-03 22:31 | ED DISCHARGE INSTRUCTIONS ---
Patient: JOCE RAYMUNDO General Instructions [facility] VisitID: [id number] [place] [address] 71y, F Registration Date/Time: 11/03/2016 Acute exacerbation of COPD. Acute urinary tract infection with cystitis. INSTRUCTIONS Do not smoke. Seek medical help to quit smoking. Your Current Medications: CONTINUE TAKING THE FOLLOWING MEDICATIONS: Aspirin Oral : Tablet Chewable 81 mg, 1 tablet daily. Atelvia* : 35mg weekly. Atorvastatin Calcium Oral : Tablet 20 mg, 1 tablet daily. Calcitrate Oral : Tablet 315-250 mg-unit, 1 tablet three times a day. Lisinopril Oral : Tablet 20 mg, 1 tablet daily. Omeprazole Oral : Capsule Delayed Release 40 mg, 1 capsule every other day. Potassium Chloride Oral : 20 meq daily. Ranitidine HCl Oral : Tablet 150 mg, 1 tablet 2x a day. Vitamin D3 Oral : Tablet 1000 unit, 2 tablets daily. Prescription Medications: Levaquin 500 mg: take 1 tab orally every day for 4 days. No refills. Substitution is permissible. (Start on 11/04/16) Albuterol 0.083% Inhalation Solution: inhale 1 unit dose (3 mL) via nebulizer every 4 hours as needed for wheezing, difficulty breathing or shortness of breath. Dispense twenty-five (25) units. No refill. Prednisone 20 mg: take 2 orally every day for 4 days. Dispense sufficient quantity. No refills. (Start on 11/04/16) Follow-up: Follow up with your doctor in two days. Call for an appointment. Blood pressure screening was not performed during this visit because the patient has an active diagnosis of hypertension. ADDITIONAL INFORMATION Bladder Infection,Female (Adult) A bladder infection ("cystitis" or "UTI") usually causes a constant urge to urinate and a burning when passing urine. Urine may be cloudy, smelly or dark. There may be pain in the lower abdomen. A bladder infection occurs when bacteria from the vaginal area enter the bladder opening (urethra). This can occur from sexual intercourse, wearing tight clothing, dehydration and other factors. Home Care: Drink lots of fluids (at least 6-8 glasses a day, unless you must restrict fluids for other medical reasons). This will force the medicine into your urinary system and flush the bacteria out of your body. Avoid sexual intercourse until your symptoms are gone. Avoid caffeine, alcohol and spicy foods. These can irritate the bladder. A bladder infection is treated with antibiotics. You may also be given Pyridium (generic = phenazopyridine) to reduce the burning sensation. This medicine will cause your urine to become a bright orange color. The orange urine may stain clothing. You may wear a pad or panty-liner to protect clothing. Preventing Future Infections: Always wipe from front to back after a bowel movement. Keep the genital area clean and dry. Drink plenty of fluids each day to avoid dehydration. Both sexual partners should wash before intercourse. Urinate right after intercourse to flush out the bladder. Wear cotton underwear and cotton-lined panty hose; avoid tight-fitting pants. If you are on control pills and are having frequent bladder infections, discuss with your doctor. Follow Up: Return to this facility or see your doctor if ALL symptoms are not gone after three days of treatment. Get Prompt Medical Attention if any of the following occur: Fever of 100.4F (38C) or higher, or as directed by your healthcare provider No improvement by the third day of treatment Increasing back or abdominal pain Repeated vomiting; unable to keep medicine down Weakness, dizziness or fainting Vaginal discharge Pain, redness or swelling in the labia (outer vaginal area) COPD Flare Both emphysema and chronic bronchitis are forms of chronic obstructive pulmonary disease (COPD). It is most often caused by many years of smoking tobacco. Many things can make your lung disease suddenly get worse. These causes include the common cold, pneumonia, acute bronchitis, missing doses of your regular breathing medicines, or being around smoke, dust, or other air pollutants. A COPD flare may last 7 to 14 days. Your doctor may prescribe medicineto relax your airways and prevent wheezing. Your doctor may also prescribe antibiotics if he or she thinks you havea bacterial infection. Prednisone can helpease inflammation in a severe attack. Home care Here are things you can do at home: Drink lots of water or other fluids (at least 10 glasses a day) during an attack. This will loosen lung secretions and make it easier to breathe. If you have heart or kidney disease, check with your doctor before you drink extra amounts of fluids. Take prescribed medicine exactly at the times advised. If you have a hand-held inhaler or aerosol breathing medicine, don't use it more than once every 4 hours, unless your doctor tells you to. If you were givenan antibiotic or prednisone, take all of the medicine even if you are feeling better after a few days. Don't smoke. Avoid being aroundthe smoke of others. If you were given an inhaler, use it exactly as directed. If you need to use it more often than prescribed, your condition may be getting worse. Call your doctor. Follow-up care Follow up with your health care provider.If you are 65 or older or have chronic asthma or COPD, you should get a single dose of the pneumococcal vaccine and aflu shot each year. You may need a second dose of the pneumococcal vaccine if you had the first dose at a younger age. Your health care provider will let you know if you need a second dose. For all other people, the usual dose for the pneumococcal vaccine is 1 or 2 shots. Yourprovider can discuss this with you. When to seek medical care Get prompt medical attention ifany of these occur: Increased wheezing or shortness of breath Need to use your inhalers more often than usual without relief Fever of 100.4F(38C) or higher, or as directed by your health care provider Coughing up lots of dark-colored or bloody sputum (mucus) Chest pain with each breath You do not start to improve within 24 hours How To Quit Smoking Smoking is one of the hardest habits to break. About half of all those who have ever smoked have been able to quit, and most of those (about 70%) who still smoke want to quit. Here are some of the best ways to stop smoking. Keep Trying: It takes most smokers about 8 tries before they are finally able to fully quit. So, the more often you try and fail, the better your chance of quitting the next time! So, don't give up! Go Cold [place]: Most ex-smokers quit cold turkey. Trying to cut back gradually doesn't seem to work as well, perhaps because it continues the smoking habit. Also, it is possible to fool yourself by inhaling more while smoking fewer cigarettes. This results in the same amount of nicotine in your body! Get Support: Support programs can make an important difference, especially for the heavy smoker. These groups offer lectures, methods to change your behavior and peer support. Call the free national Quitline for more information. 516-ZEOM-NXF (718-390-6357). Low-cost or free programs are offered by many hospitals, local chapters of the [place] [employer] (161-648-7461) and the [place] [employer] (247-326-0408). Support at home is important too. Non-smokers can help by offering praise and encouragement. If the smoker fails to quit, encourage them to try again! Sumq-Ctx-Uutxnnq Medicines: For those who can't quit on their own, Nicotine Replacement Therapy (NRT) may make quitting much easier. Certain aids such as the nicotine patch, gum and lozenge are available without a prescription. However, it is best to use these under the guidance of your doctor. The skin patch provides a steady supply of nicotine to the body. Nicotine gum and lozenge gives temporary bursts of low levels of nicotine. Both methods take the edge off the craving for cigarettes. WARNING: If you feel symptoms of nicotine overdose, such as nausea, vomiting, dizziness, weakness, or fast heartbeat, stop using these and see your doctor. Prescription Medicines: After evaluating your smoking patterns and prior attempts at quitting, your doctor may offer a prescription medicine such as bupropion (Zyban, Wellbutrin), varenicline (Chantix, Champix), a niocotine inhaler or nasal spray. Each has its unique advantage and side effects which your doctor can review with you. Health Benefits Of Quitting: The benefits of quitting start right away and keep improving the longer you go without smokin minutes: blood pressure and pulse return to normal 8 hours: oxygen levels return to normal 2 days: ability to smell and taste begins to improve as damaged nerves start to regrow 2-3 weeks: circulation and lung function improves 1-9 months: decreased cough, congestion and shortness of breath; less tired 1 year: risk of heart attack decreases by half 5 years: risk of lung cancer decreases by half; risk of stroke becomes the same as a non-smoker For information about how to quit smoking, visit the following links: National Cancer [place] , Clearing the Air, Quit Smoking Today - an online booklet. http://www.smokefree.gov/pubs/clearing_the_air.pdf Smokefree.gov http://smokefree.gov/ QuitNet http://www.quitnet.Social Strategy 1/ Levofloxacin Oral tablet What is this medicine? LEVOFLOXACIN (meghana diggs CECY melvi clark) is a quinolone antibiotic. It is used to treat certain kinds of bacterial infections. It will not work for colds, flu, or other viral infections. How should I use this medicine? Take this medicine by mouth with a full glass of water. Follow the directions on the prescription label. This medicine can be taken with or without food. Take your medicine at regular intervals. Do not take your medicine more often than directed. Do not skip doses or stop your medicine early even if you feel better. Do not stop taking except on your doctor's advice. A special MedGuide will be given to you by the pharmacist with each prescription and refill. Be sure to read this information carefully each time. Talk to your food tray assembler regarding the use of this medicine in children. While this drug may be prescribed for children as young as 6 months for selected conditions, precautions do apply. What side effects may I notice from receiving this medicine? Side effects that you should report to your doctor or health resident care manager as soon as possible: -allergic reactions like skin rash or hives, swelling of the face, lips, or tongue -changes in vision -confusion, nightmares or hallucinations -difficulty breathing -irregular heartbeat, chest pain -joint, muscle or tendon pain -pain or difficulty passing urine -persistent headache with or without blurred vision -redness, blistering, peeling or loosening of the skin, including inside the mouth -seizures -unusual pain, numbness, tingling, or weakness -vaginal irritation, discharge Side effects that usually do not require medical attention (report to your doctor or health resident care manager if they continue or are bothersome): -diarrhea -dry mouth -headache -stomach upset, nausea -trouble sleeping What may interact with this medicine? Do not take this medicine with any of the following medications: - arsenic trioxide - chloroquine - droperidol - medicines for irregular heart rhythm like amiodarone, disopyramide, dofetilide, flecainide, quinidine, procainamide, sotalol - some medicines for depression or mental problems like phenothiazines, pimozide, and ziprasidone This medicine may also interact with the following medications: - amoxapine -antacids - cisapride - dairy products - didanosine (ddI) buffered tablets or powder - haloperidol - multivitamins -NSAIDS, medicines for pain and inflammation, like ibuprofen or naproxen - retinoid products like tretinoin or isotretinoin - risperidone - some other antibiotics like clarithromycin or erythromycin - sucralfate - theophylline - warfarin What if I miss a dose? If you miss a dose, take it as soon as you remember. If it is almost time for your next dose, take only that dose. Do not take double or extra doses. Where should I keep my medicine? Keep out of the reach of children. Store at room temperature between 15 and 30 degrees C (59 and 86 degrees F). Keep in a tightly closed container. Throw away any unused medicine after the expiration date. What should I tell my health care provider before I take this medicine? They need to know if you have any of these conditions: cerebral disease irregular heartbeat kidney disease seizure disorder an unusual or allergic reaction to levofloxacin, other antibiotics or medicines, foods, dyes, or preservatives or trying to get breast-feeding What should I watch for while using this medicine? Tell your doctor or health resident care manager if your symptoms do not improve or if they get worse. Drink several glasses of water a day and cut down on drinks that contain caffeine. You must not get dehydrated while taking this medicine. You may get drowsy or dizzy. Do not drive, use machinery, or do anything that needs mental alertness until you know how this medicine affects you. Do not sit or stand up quickly, especially if you are an older patient. This reduces the risk of dizzy or fainting spells. This medicine can make you more sensitive to the sun. Keep out of the sun. If you cannot avoid being in the sun, wear protective clothing and use a sunscreen. Do not use sun lamps or tanning beds/booths. Contact your doctor if you get a sunburn. If you are a diabetic monitor your blood glucose carefully. If you get an unusual reading stop taking this medicine and call your doctor right away. Do not treat diarrhea with hvcd-mig-bhznyzk products. Contact your doctor if you have diarrhea that lasts more than 2 days or if the diarrhea is severe and watery. Avoid antacids, calcium, iron, and zinc products for 2 hours before and 2 hours after taking a dose of this medicine. Albuterol Sulfate Nebulizer solution What is this medicine? ALBUTEROL (al BYOO ter ole) is a bronchodilator. It helps to open up the airways in your lungs to make it easier to breathe. This medicine is used to treat and to prevent bronchospasm. How should I use this medicine? This medicine is used in a nebulizer. Nebulizers make a liquid into an aerosol that you breathe in through your mouth or your mouth and nose into your lungs. You will be taught how to use your nebulizer. Follow the directions on your prescription label. Take your medicine at regular intervals. Do not use more often than directed. Talk to your food tray assembler regarding the use of this medicine in children. Special care may be needed. What side effects may I notice from receiving this medicine? Side effects that you should report to your doctor or health resident care manager as soon as possible: allergic reactions like skin rash, itching or hives, swelling of the face, lips, or tongue breathing problems chest pain feeling faint or lightheaded, falls high blood pressure irregular heartbeat fever muscle cramps or weakness pain, tingling, numbness in the hands or feet vomiting Side effects that usually do not require medical attention (report to your doctor or health resident care manager if they continue or are bothersome): cough difficulty sleeping headache nervousness, trembling stomach upset stuffy or runny nose throat irritation unusual taste What may interact with this medicine? anti-infectives like chloroquine and pentamidine caffeine cisapride diuretics medicines for colds medicines for depression or emotional or psychotic conditions medicines for weight loss including some herbal products methadone some antibiotics like clarithromycin, erythromycin, levofloxacin, and linezolid some heart medicines steroid hormones like dexamethasone, cortisone, hydrocortisone theophylline thyroid hormones What if I miss a dose? If you miss a dose, use it as soon as you can. If it is almost time for your next dose, use only that dose. Do not use double or extra doses. Where should I keep my medicine? Keep out of the reach of children. Store between 2 and 25 degrees C (36 and 77 degrees F). Do not freeze. Protect from light. Throw away any unused medicine after the expiration date. Most products are kept in the foil package until time of use. Some products can be used up to 1 week after they are removed from the foil pouch. Check the instructions that come with your medicine. What should I tell my health care provider before I take this medicine? They need to know if you have any of the following conditions: diabetes heart disease or irregular heartbeat high blood pressure pheochromocytoma seizures thyroid disease an unusual or allergic reaction to albuterol, levalbuterol, sulfites, other medicines, foods, dyes, or preservatives or trying to get breast-feeding What should I watch for while using this medicine? Tell your doctor or health resident care manager if your symptoms do not improve. Do not use extra albuterol. Call your doctor right away if your asthma or bronchitis gets worse while you are using this medicine. If your mouth gets dry try chewing sugarless gum or sucking hard candy. Drink water as directed. Prednisone Oral tablet What is this medicine? PREDNISONE (PRED ni sone) is a corticosteroid. It is commonly used to treat inflammation of the skin, joints, lungs, and other organs. Common conditions treated include asthma, allergies, and arthritis. It is also used for other conditions, such as blood disorders and diseases of the adrenal glands. How should I use this medicine? Take this medicine by mouth with a glass of water. Follow the directions on the prescription label. Take this medicine with food. If you are taking this medicine once a day, take it in the morning. Do not take more medicine than you are told to take. Do not suddenly stop taking your medicine because you may develop a severe reaction. Your doctor will tell you how much medicine to take. If your doctor wants you to stop the medicine, the dose may be slowly lowered over time to avoid any side effects. Talk to your food tray assembler regarding the use of this medicine in children. Special care may be needed. What side effects may I notice from receiving this medicine? Side effects that you should report to your doctor or health resident care manager as soon as possible: allergic reactions like skin rash, itching or hives, swelling of the face, lips, or tongue changes in emotions or moods changes in vision depressed mood eye pain fever or chills, cough, sore throat, pain or difficulty passing urine increased thirst swelling of ankles, feet Side effects that usually do not require medical attention (report to your doctor or health resident care manager if they continue or are bothersome): confusion, excitement, restlessness headache nausea, vomiting skin problems, acne, thin and shiny skin trouble sleeping weight gain What may interact with this medicine? Do not take this medicine with any of the following medications: metyrapone mifepristone This medicine may also interact with the following medications: aminoglutethimide amphotericin B aspirin and aspirin-like medicines barbiturates certain medicines for diabetes, like glipizide or glyburide cholestyramine cholinesterase inhibitors cyclosporine digoxin diuretics ephedrine female hormones, like estrogens and control pills isoniazid ketoconazole NSAIDS, medicines for pain and inflammation, like ibuprofen or naproxen phenytoin rifampin toxoids vaccines warfarin What if I miss a dose? If you miss a dose, take it as soon as you can. If it is almost time for your next dose, talk to your doctor or health resident care manager. You may need to miss a dose or take an extra dose. Do not take double or extra doses without advice. Where should I keep my medicine? Keep out of the reach of children. Store at room temperature between 15 and 30 degrees C (59 and 86 degrees F). Protect from light. Keep container tightly closed. Throw away any unused medicine after the expiration date. What should I tell my health care provider before I take this medicine? They need to know if you have any of these conditions: [place]'s syndrome diabetes glaucoma heart disease high blood pressure infection (especially a virus infection such as chickenpox, cold sores, or herpes) kidney disease liver disease mental illness myasthenia gravis osteoporosis seizures stomach or intestine problems thyroid disease an unusual or allergic reaction to lactose, prednisone, other medicines, foods, dyes, or preservatives or trying to get breast-feeding What should I watch for while using this medicine? Visit your doctor or health resident care manager for regular checks on your progress. If you are taking this medicine over a prolonged period, carry an identification card with your name and address, the type and dose of your medicine, and your doctor's name and address. This medicine may increase your risk of getting an infection. Tell your doctor or health resident care manager if you are around anyone with measles or chickenpox, or if you develop sores or blisters that do not heal properly. If you are going to have surgery, tell your doctor or health resident care manager that you have taken this medicine within the last twelve months. Ask your doctor or health resident care manager about your diet. You may need to lower the amount of salt you eat. This medicine may affect blood sugar levels. If you have diabetes, check with your doctor or health resident care manager before you change your diet or the dose of your diabetic medicine. You have been given the following additional information: Bladder Infection, Female (Adult) COPD Flare Smoking Cessation Levofloxacin Oral tablet Albuterol Sulfate Nebulizer solution Prednisone Oral tablet (Electronically signed by Moises Garcia Dr. 11/03/2016 22:31)
--- NOTE | 2016-11-03 22:31 | ED MAR SUMMARY ---
..... Medication Administration Record Formerly [facility] [address] [place] [address] Patient: JOCE RAYMUNDO Visit ID: [id number] 71y, F Weight: 74.8 kg Height/Length: 63 in BMI: 29.2 ALLERGIES: Zyrtec Given 12:26 11/03/2016 Magdy Romero, Medication Administered: DUONEB [NEB TX] (IPRATROPIUM-ALBUTEROL), Dose: 1 unit dose Neb TX. Medication Ordered: DuoNeb Neb Tx 1 unit dose (NOW). Given 14:11/03/2016 Kateryna Franklin RLingNLing Medication Administered: LEVAQUIN [PO] (LEVOFLOXACIN), Dose: 500 mg Tablets PO. Medication Ordered: Levaquin PO 500 mg (NOW). Given 14:11/03/2016 Kateryna Franklin RLingNLing Medication Administered: PREDNISONE [PO], Dose: 40 mg Tablets PO. Medication Ordered: Prednisone PO 40 mg (NOW).
--- NOTE | 2016-11-03 22:31 | ED DISCHARGE INSTRUCTIONS ---
Patient: JOCE RAYMUNDO General Instructions [facility] VisitID: [id number] [place] [address] 71y, F Registration Date/Time: 11/03/2016 Acute exacerbation of COPD. Acute urinary tract infection with cystitis. INSTRUCTIONS Do not smoke. Seek medical help to quit smoking. Your Current Medications: CONTINUE TAKING THE FOLLOWING MEDICATIONS: Aspirin Oral : Tablet Chewable 81 mg, 1 tablet daily. Atelvia* : 35mg weekly. Atorvastatin Calcium Oral : Tablet 20 mg, 1 tablet daily. Calcitrate Oral : Tablet 315-250 mg-unit, 1 tablet three times a day. Lisinopril Oral : Tablet 20 mg, 1 tablet daily. Omeprazole Oral : Capsule Delayed Release 40 mg, 1 capsule every other day. Potassium Chloride Oral : 20 meq daily. Ranitidine HCl Oral : Tablet 150 mg, 1 tablet 2x a day. Vitamin D3 Oral : Tablet 1000 unit, 2 tablets daily. Prescription Medications: Levaquin 500 mg: take 1 tab orally every day for 4 days. No refills. Substitution is permissible. (Start on 11/04/16) Albuterol 0.083% Inhalation Solution: inhale 1 unit dose (3 mL) via nebulizer every 4 hours as needed for wheezing, difficulty breathing or shortness of breath. Dispense twenty-five (25) units. No refill. Prednisone 20 mg: take 2 orally every day for 4 days. Dispense sufficient quantity. No refills. (Start on 11/04/16) Follow-up: Follow up with your doctor in two days. Call for an appointment. Blood pressure screening was not performed during this visit because the patient has an active diagnosis of hypertension. ADDITIONAL INFORMATION Bladder Infection,Female (Adult) A bladder infection ("cystitis" or "UTI") usually causes a constant urge to urinate and a burning when passing urine. Urine may be cloudy, smelly or dark. There may be pain in the lower abdomen. A bladder infection occurs when bacteria from the vaginal area enter the bladder opening (urethra). This can occur from sexual intercourse, wearing tight clothing, dehydration and other factors. Home Care: Drink lots of fluids (at least 6-8 glasses a day, unless you must restrict fluids for other medical reasons). This will force the medicine into your urinary system and flush the bacteria out of your body. Avoid sexual intercourse until your symptoms are gone. Avoid caffeine, alcohol and spicy foods. These can irritate the bladder. A bladder infection is treated with antibiotics. You may also be given Pyridium (generic = phenazopyridine) to reduce the burning sensation. This medicine will cause your urine to become a bright orange color. The orange urine may stain clothing. You may wear a pad or panty-liner to protect clothing. Preventing Future Infections: Always wipe from front to back after a bowel movement. Keep the genital area clean and dry. Drink plenty of fluids each day to avoid dehydration. Both sexual partners should wash before intercourse. Urinate right after intercourse to flush out the bladder. Wear cotton underwear and cotton-lined panty hose; avoid tight-fitting pants. If you are on control pills and are having frequent bladder infections, discuss with your doctor. Follow Up: Return to this facility or see your doctor if ALL symptoms are not gone after three days of treatment. Get Prompt Medical Attention if any of the following occur: Fever of 100.4F (38C) or higher, or as directed by your healthcare provider No improvement by the third day of treatment Increasing back or abdominal pain Repeated vomiting; unable to keep medicine down Weakness, dizziness or fainting Vaginal discharge Pain, redness or swelling in the labia (outer vaginal area) COPD Flare Both emphysema and chronic bronchitis are forms of chronic obstructive pulmonary disease (COPD). It is most often caused by many years of smoking tobacco. Many things can make your lung disease suddenly get worse. These causes include the common cold, pneumonia, acute bronchitis, missing doses of your regular breathing medicines, or being around smoke, dust, or other air pollutants. A COPD flare may last 7 to 14 days. Your doctor may prescribe medicineto relax your airways and prevent wheezing. Your doctor may also prescribe antibiotics if he or she thinks you havea bacterial infection. Prednisone can helpease inflammation in a severe attack. Home care Here are things you can do at home: Drink lots of water or other fluids (at least 10 glasses a day) during an attack. This will loosen lung secretions and make it easier to breathe. If you have heart or kidney disease, check with your doctor before you drink extra amounts of fluids. Take prescribed medicine exactly at the times advised. If you have a hand-held inhaler or aerosol breathing medicine, don't use it more than once every 4 hours, unless your doctor tells you to. If you were givenan antibiotic or prednisone, take all of the medicine even if you are feeling better after a few days. Don't smoke. Avoid being aroundthe smoke of others. If you were given an inhaler, use it exactly as directed. If you need to use it more often than prescribed, your condition may be getting worse. Call your doctor. Follow-up care Follow up with your health care provider.If you are 65 or older or have chronic asthma or COPD, you should get a single dose of the pneumococcal vaccine and aflu shot each year. You may need a second dose of the pneumococcal vaccine if you had the first dose at a younger age. Your health care provider will let you know if you need a second dose. For all other people, the usual dose for the pneumococcal vaccine is 1 or 2 shots. Yourprovider can discuss this with you. When to seek medical care Get prompt medical attention ifany of these occur: Increased wheezing or shortness of breath Need to use your inhalers more often than usual without relief Fever of 100.4F(38C) or higher, or as directed by your health care provider Coughing up lots of dark-colored or bloody sputum (mucus) Chest pain with each breath You do not start to improve within 24 hours How To Quit Smoking Smoking is one of the hardest habits to break. About half of all those who have ever smoked have been able to quit, and most of those (about 70%) who still smoke want to quit. Here are some of the best ways to stop smoking. Keep Trying: It takes most smokers about 8 tries before they are finally able to fully quit. So, the more often you try and fail, the better your chance of quitting the next time! So, don't give up! Go Cold [place]: Most ex-smokers quit cold turkey. Trying to cut back gradually doesn't seem to work as well, perhaps because it continues the smoking habit. Also, it is possible to fool yourself by inhaling more while smoking fewer cigarettes. This results in the same amount of nicotine in your body! Get Support: Support programs can make an important difference, especially for the heavy smoker. These groups offer lectures, methods to change your behavior and peer support. Call the free national Quitline for more information. 513-OZXK-UWS (708-753-2004). Low-cost or free programs are offered by many hospitals, local chapters of the [employer] (913-287-7692) and the [employer] (641-536-9792). Support at home is important too. Non-smokers can help by offering praise and encouragement. If the smoker fails to quit, encourage them to try again! Zodf-Mzy-Epmtqii Medicines: For those who can't quit on their own, Nicotine Replacement Therapy (NRT) may make quitting much easier. Certain aids such as the nicotine patch, gum and lozenge are available without a prescription. However, it is best to use these under the guidance of your doctor. The skin patch provides a steady supply of nicotine to the body. Nicotine gum and lozenge gives temporary bursts of low levels of nicotine. Both methods take the edge off the craving for cigarettes. WARNING: If you feel symptoms of nicotine overdose, such as nausea, vomiting, dizziness, weakness, or fast heartbeat, stop using these and see your doctor. Prescription Medicines: After evaluating your smoking patterns and prior attempts at quitting, your doctor may offer a prescription medicine such as bupropion (Zyban, Wellbutrin), varenicline (Chantix, Champix), a niocotine inhaler or nasal spray. Each has its unique advantage and side effects which your doctor can review with you. Health Benefits Of Quitting: The benefits of quitting start right away and keep improving the longer you go without smokin minutes: blood pressure and pulse return to normal 8 hours: oxygen levels return to normal 2 days: ability to smell and taste begins to improve as damaged nerves start to regrow 2-3 weeks: circulation and lung function improves 1-9 months: decreased cough, congestion and shortness of breath; less tired 1 year: risk of heart attack decreases by half 5 years: risk of lung cancer decreases by half; risk of stroke becomes the same as a non-smoker For information about how to quit smoking, visit the following links: National Cancer [place] , Clearing the Air, Quit Smoking Today - an online booklet. http://www.smokefree.gov/pubs/clearing_the_air.pdf Smokefree.gov http://smokefree.gov/ QuitNet http://www.quitnet.Elevate/ Levofloxacin Oral tablet What is this medicine? LEVOFLOXACIN (meghana diggs CECY melvi clark) is a quinolone antibiotic. It is used to treat certain kinds of bacterial infections. It will not work for colds, flu, or other viral infections. How should I use this medicine? Take this medicine by mouth with a full glass of water. Follow the directions on the prescription label. This medicine can be taken with or without food. Take your medicine at regular intervals. Do not take your medicine more often than directed. Do not skip doses or stop your medicine early even if you feel better. Do not stop taking except on your doctor's advice. A special MedGuide will be given to you by the pharmacist with each prescription and refill. Be sure to read this information carefully each time. Talk to your public health technician regarding the use of this medicine in children. While this drug may be prescribed for children as young as 6 months for selected conditions, precautions do apply. What side effects may I notice from receiving this medicine? Side effects that you should report to your doctor or health medicare specialist as soon as possible: -allergic reactions like skin rash or hives, swelling of the face, lips, or tongue -changes in vision -confusion, nightmares or hallucinations -difficulty breathing -irregular heartbeat, chest pain -joint, muscle or tendon pain -pain or difficulty passing urine -persistent headache with or without blurred vision -redness, blistering, peeling or loosening of the skin, including inside the mouth -seizures -unusual pain, numbness, tingling, or weakness -vaginal irritation, discharge Side effects that usually do not require medical attention (report to your doctor or health medicare specialist if they continue or are bothersome): -diarrhea -dry mouth -headache -stomach upset, nausea -trouble sleeping What may interact with this medicine? Do not take this medicine with any of the following medications: - arsenic trioxide - chloroquine - droperidol - medicines for irregular heart rhythm like amiodarone, disopyramide, dofetilide, flecainide, quinidine, procainamide, sotalol - some medicines for depression or mental problems like phenothiazines, pimozide, and ziprasidone This medicine may also interact with the following medications: - amoxapine -antacids - cisapride - dairy products - didanosine (ddI) buffered tablets or powder - haloperidol - multivitamins -NSAIDS, medicines for pain and inflammation, like ibuprofen or naproxen - retinoid products like tretinoin or isotretinoin - risperidone - some other antibiotics like clarithromycin or erythromycin - sucralfate - theophylline - warfarin What if I miss a dose? If you miss a dose, take it as soon as you remember. If it is almost time for your next dose, take only that dose. Do not take double or extra doses. Where should I keep my medicine? Keep out of the reach of children. Store at room temperature between 15 and 30 degrees C (59 and 86 degrees F). Keep in a tightly closed container. Throw away any unused medicine after the expiration date. What should I tell my health care provider before I take this medicine? They need to know if you have any of these conditions: cerebral disease irregular heartbeat kidney disease seizure disorder an unusual or allergic reaction to levofloxacin, other antibiotics or medicines, foods, dyes, or preservatives or trying to get breast-feeding What should I watch for while using this medicine? Tell your doctor or health medicare specialist if your symptoms do not improve or if they get worse. Drink several glasses of water a day and cut down on drinks that contain caffeine. You must not get dehydrated while taking this medicine. You may get drowsy or dizzy. Do not drive, use machinery, or do anything that needs mental alertness until you know how this medicine affects you. Do not sit or stand up quickly, especially if you are an older patient. This reduces the risk of dizzy or fainting spells. This medicine can make you more sensitive to the sun. Keep out of the sun. If you cannot avoid being in the sun, wear protective clothing and use a sunscreen. Do not use sun lamps or tanning beds/booths. Contact your doctor if you get a sunburn. If you are a diabetic monitor your blood glucose carefully. If you get an unusual reading stop taking this medicine and call your doctor right away. Do not treat diarrhea with zaba-lgv-nxcttll products. Contact your doctor if you have diarrhea that lasts more than 2 days or if the diarrhea is severe and watery. Avoid antacids, calcium, iron, and zinc products for 2 hours before and 2 hours after taking a dose of this medicine. Albuterol Sulfate Nebulizer solution What is this medicine? ALBUTEROL (al BYOO ter ole) is a bronchodilator. It helps to open up the airways in your lungs to make it easier to breathe. This medicine is used to treat and to prevent bronchospasm. How should I use this medicine? This medicine is used in a nebulizer. Nebulizers make a liquid into an aerosol that you breathe in through your mouth or your mouth and nose into your lungs. You will be taught how to use your nebulizer. Follow the directions on your prescription label. Take your medicine at regular intervals. Do not use more often than directed. Talk to your public health technician regarding the use of this medicine in children. Special care may be needed. What side effects may I notice from receiving this medicine? Side effects that you should report to your doctor or health medicare specialist as soon as possible: allergic reactions like skin rash, itching or hives, swelling of the face, lips, or tongue breathing problems chest pain feeling faint or lightheaded, falls high blood pressure irregular heartbeat fever muscle cramps or weakness pain, tingling, numbness in the hands or feet vomiting Side effects that usually do not require medical attention (report to your doctor or health medicare specialist if they continue or are bothersome): cough difficulty sleeping headache nervousness, trembling stomach upset stuffy or runny nose throat irritation unusual taste What may interact with this medicine? anti-infectives like chloroquine and pentamidine caffeine cisapride diuretics medicines for colds medicines for depression or emotional or psychotic conditions medicines for weight loss including some herbal products methadone some antibiotics like clarithromycin, erythromycin, levofloxacin, and linezolid some heart medicines steroid hormones like dexamethasone, cortisone, hydrocortisone theophylline thyroid hormones What if I miss a dose? If you miss a dose, use it as soon as you can. If it is almost time for your next dose, use only that dose. Do not use double or extra doses. Where should I keep my medicine? Keep out of the reach of children. Store between 2 and 25 degrees C (36 and 77 degrees F). Do not freeze. Protect from light. Throw away any unused medicine after the expiration date. Most products are kept in the foil package until time of use. Some products can be used up to 1 week after they are removed from the foil pouch. Check the instructions that come with your medicine. What should I tell my health care provider before I take this medicine? They need to know if you have any of the following conditions: diabetes heart disease or irregular heartbeat high blood pressure pheochromocytoma seizures thyroid disease an unusual or allergic reaction to albuterol, levalbuterol, sulfites, other medicines, foods, dyes, or preservatives or trying to get breast-feeding What should I watch for while using this medicine? Tell your doctor or health medicare specialist if your symptoms do not improve. Do not use extra albuterol. Call your doctor right away if your asthma or bronchitis gets worse while you are using this medicine. If your mouth gets dry try chewing sugarless gum or sucking hard candy. Drink water as directed. Prednisone Oral tablet What is this medicine? PREDNISONE (PRED ni sone) is a corticosteroid. It is commonly used to treat inflammation of the skin, joints, lungs, and other organs. Common conditions treated include asthma, allergies, and arthritis. It is also used for other conditions, such as blood disorders and diseases of the adrenal glands. How should I use this medicine? Take this medicine by mouth with a glass of water. Follow the directions on the prescription label. Take this medicine with food. If you are taking this medicine once a day, take it in the morning. Do not take more medicine than you are told to take. Do not suddenly stop taking your medicine because you may develop a severe reaction. Your doctor will tell you how much medicine to take. If your doctor wants you to stop the medicine, the dose may be slowly lowered over time to avoid any side effects. Talk to your public health technician regarding the use of this medicine in children. Special care may be needed. What side effects may I notice from receiving this medicine? Side effects that you should report to your doctor or health medicare specialist as soon as possible: allergic reactions like skin rash, itching or hives, swelling of the face, lips, or tongue changes in emotions or moods changes in vision depressed mood eye pain fever or chills, cough, sore throat, pain or difficulty passing urine increased thirst swelling of ankles, feet Side effects that usually do not require medical attention (report to your doctor or health medicare specialist if they continue or are bothersome): confusion, excitement, restlessness headache nausea, vomiting skin problems, acne, thin and shiny skin trouble sleeping weight gain What may interact with this medicine? Do not take this medicine with any of the following medications: metyrapone mifepristone This medicine may also interact with the following medications: aminoglutethimide amphotericin B aspirin and aspirin-like medicines barbiturates certain medicines for diabetes, like glipizide or glyburide cholestyramine cholinesterase inhibitors cyclosporine digoxin diuretics ephedrine female hormones, like estrogens and control pills isoniazid ketoconazole NSAIDS, medicines for pain and inflammation, like ibuprofen or naproxen phenytoin rifampin toxoids vaccines warfarin What if I miss a dose? If you miss a dose, take it as soon as you can. If it is almost time for your next dose, talk to your doctor or health medicare specialist. You may need to miss a dose or take an extra dose. Do not take double or extra doses without advice. Where should I keep my medicine? Keep out of the reach of children. Store at room temperature between 15 and 30 degrees C (59 and 86 degrees F). Protect from light. Keep container tightly closed. Throw away any unused medicine after the expiration date. What should I tell my health care provider before I take this medicine? They need to know if you have any of these conditions: [place]'s syndrome diabetes glaucoma heart disease high blood pressure infection (especially a virus infection such as chickenpox, cold sores, or herpes) kidney disease liver disease mental illness myasthenia gravis osteoporosis seizures stomach or intestine problems thyroid disease an unusual or allergic reaction to lactose, prednisone, other medicines, foods, dyes, or preservatives or trying to get breast-feeding What should I watch for while using this medicine? Visit your doctor or health medicare specialist for regular checks on your progress. If you are taking this medicine over a prolonged period, carry an identification card with your name and address, the type and dose of your medicine, and your doctor's name and address. This medicine may increase your risk of getting an infection. Tell your doctor or health medicare specialist if you are around anyone with measles or chickenpox, or if you develop sores or blisters that do not heal properly. If you are going to have surgery, tell your doctor or health medicare specialist that you have taken this medicine within the last twelve months. Ask your doctor or health medicare specialist about your diet. You may need to lower the amount of salt you eat. This medicine may affect blood sugar levels. If you have diabetes, check with your doctor or health medicare specialist before you change your diet or the dose of your diabetic medicine. You have been given the following additional information: Bladder Infection, Female (Adult) COPD Flare Smoking Cessation Levofloxacin Oral tablet Albuterol Sulfate Nebulizer solution Prednisone Oral tablet (Electronically signed by Moises Garcia Dr. 11/03/2016 22:31)
--- NOTE | 2016-11-03 22:31 | ED MED RECONCILIATION SUMMARY ---
Patient: OJCE RAYMUNDO Medication Reconciliation Report [facility] VisitID: [id number] [place] [address] 71y, F Registration Date/Time: 11/03/2016 Weight: 74.8 kg Height/Length: 63 in. BMI: 29.2 ALLERGIES: Zyrtec The patient's Home Medications are listed below: CONTINUE TAKING THE FOLLOWING MEDICATIONS: Aspirin Oral (81 mg) 1 tablet, daily Atelvia 35mg , weekly Atorvastatin Calcium Oral (20 mg) 1 tablet, daily Calcitrate Oral (315-250 mg-unit) 1 tablet, three times a day Lisinopril Oral (20 mg) 1 tablet, daily Omeprazole Oral (40 mg) 1 capsule, every other day Potassium Chloride Oral 20 meq, daily Ranitidine HCl Oral (150 mg) 1 tablet, 2x a day Vitamin D3 Oral (1000 unit) 2 tablets, daily The source(s) of the original Home Medication information: Not obtained. The following Medications were given to the patient in the Emergency Department: Duoneb [Neb Tx] Neb TX 1 unit dose, administered: 11/03/2016 12:26:00 PM Levaquin [PO] PO 500 mg, administered: 11/03/2016 2:19:00 PM Prednisone [PO] PO 40 mg, administered: 11/03/2016 2:19:00 PM The following Medications were prescribed to the patient: Levaquin 500 mg: take 1 tab orally every day for 4 days. No refills. Substitution is permissible.(Start on 11/04/16) -- Moises Garcia Dr. Albuterol 0.083% Inhalation Solution: inhale 1 unit dose (3 mL) via nebulizer every 4 hours as needed for wheezing, difficulty breathing or shortness of breath. Dispense twenty-five (25) units. No refill. -- Moises Garcia Dr. Prednisone 20 mg: take 2 orally every day for 4 days. Dispense sufficient quantity. No refills.(Start on 11/04/16) -- Moises Garcia Dr.
== END 2016-11-03 14:50 | disposition home or self-care (01) ==
LOC: ED SRH 11:32
DX: J44.1 Chronic obstructive pulmonary disease with (acute) exacerbation (principal); N30.90 Cystitis, unspecified without hematuria; I10 Essential (primary) hypertension; F17.210 Nicotine dependence, cigarettes, uncomplicated; Z79.899 Other long term (current) drug therapy; Z79.82 Long term (current) use of aspirin; Z88.8 Allergy status to other drugs, medicaments and biological substances
CPT/HCPCS: 90004; 90100; 90469; 95059